=== PATIENT | male | born 1990 | race Caucasian/White ===

== ENCOUNTER 2018-04-20 23:52 | Emergency (ER) | payer SELFPAY ==
[2018-04-21 00:23] VITALS: BP 118/79
--- NOTE | 2018-04-21 00:42 | ER Document Report ---
HPI - HPI Pain Level: Denies Notes: Patient is an otherwise healthy 27-year-old male who presents with chief complaint of rash. Patient reports that multiple family members have this similar rash. Patient denies the use of any new products, denies a history of any MRSA. - CONSTITUTIONAL Constitutional: DENIES: Fever Past Medical History - General Information source: Patient - Social History Smoking Status: Never Smoker Chew tobacco use (# tins/day): No Drug Abuse: None Family History: Reviewed & Not Pertinent Patient has suicidal ideation: No Patient has homicidal ideation: No - Medical History Medical History: Negative Renal/ Medical History: Denies: Hx Peritoneal Dialysis Surgical Hx: Negative - Immunizations Immunizations up to date: Yes Vertical Provider Document - CONSTITUTIONAL Notes: PHYSICAL EXAMINATION: GENERAL: Well-appearing, well-nourished and in no acute distress. HEAD: Atraumatic, normocephalic. EYES: Pupils equal round extraocular movements intact, conjunctiva are normal. ENT: Nares patent NECK: Normal range of motion LUNGS: No respiratory distress Musculoskeletal: Normal range of motion NEUROLOGICAL: Normal speech, normal gait. PSYCH: Normal mood, normal affect. SKIN: Warm, Dry, normal turgor, small erythematous papules noted scattered across patient's body. Patient also has multiple larger round honey crusted lesions to the left shoulder, left hand and right wrist. Course - Re-evaluation Re-evalutation: Examination is consistent with scabies. Patient does have some small areas that are also consistent with impetigo. Patient does have multiple family members with similar symptoms, family recently was getting over impetigo when they broke out with scabies. - Vital Signs Vital signs: Temp Pulse Resp BP Pulse Ox 98.4 F 76 16 118/79 100 04/21/18 00:23 04/21/18 00:23 04/21/18 00:23 04/21/18 00:23 04/21/18 00:23 Discharge - Discharge Clinical Impression: Crusted scabies, Impetigo Condition: Stable Disposition: HOME, SELF-CARE Additional Instructions: Impetigo You have a skin infection called impetigo. This infection is caused by germs growing between the skin layers. It spreads easily and is quite contagious. The usual treatment is with oral antibiotics, along with washing the sores and application of an antibiotic ointment. There's a new prescription antibiotic ointment which may allow some cases of impetigo to be treated without pills. Healing takes about a week. All involved areas should recover with no scarring. If there is significant worsening, or if new symptoms (such as dark urine, fever, chills, or red streaks) arise, call the doctor or return for re- examination. Scabies Your exam suggests the presence of scabies, which are microscopic parasites of the skin. These mites suzan through the skin, causing severe itching. The mite can be spread to other persons by skin contact. All clothing, towels, and bedding should be washed in very hot water, set aside for a week, then washed again. You should apply scabies-killing lotion from the neck down, then wash it off after 12 hours. You may need medication for itching, as the itch persists for many days after the mites have been killed. All family members and close personal contacts should be examined. Repeat treatment may be necessary if the infestation is not eliminated with a single treatment. Call the doctor if you develop increasing swelling and redness, red streaks , tender lumps, fever, or drainage from a skin sore. Prescriptions: Mupirocin 1 applic TD BID 5 Days #44 gm Permethrin [Elimite] 60 gm TP NOW #120 gm Forms: Return to Work
== END 2018-04-21 01:13 | disposition home or self-care (01) ==
LOC: ER 23:52
DX: B86 Scabies (principal); L01.00 Impetigo, unspecified
CPT/HCPCS: 99282

== ENCOUNTER 2018-09-05 01:58 | Emergency (ER) | payer SELFPAY ==
[2018-09-05] MEDS ORDERED: LIDOCAINE 1% INJ-PF (10 MG/ML) 30 ML SDV INJ ONE (04:24)
[2018-09-05] MEDS ORDERED: HYDROCODONE/ACETAMINOPHEN 5-325 MG TABLET PO ONE (04:24)
[2018-09-05] MEDS ORDERED: DOXYCYCLINE HYCLATE 100 MG TABLET PO ONE (04:25)
--- NOTE | 2018-09-05 04:27 | ER Document Report ---
HPI - HPI Patient complains to provider of: Abscess Time Seen by Provider: 09/05/18 03:39 Pain Level: 2 Context: Patient is a 20-year-old male presents to the emergency department for redness and swelling noted to the left anterior thigh. Patient states he noticed this redness and swelling today. Patient stated he feels as though he may have gotten bitten by a bug but he is unsure and is denying any trauma or injury. Patient is denying any fever, Generalized body aches, nausea, vomiting. Past medical history: None Medications: None allergies: Penicillin, sulfa Past Medical History - General Information source: Patient - Social History Smoking Status: Never Smoker Frequency of alcohol use: Rare Drug Abuse: None Family History: Reviewed & Not Pertinent Patient has suicidal ideation: No Patient has homicidal ideation: No Renal/ Medical History: Denies: Hx Peritoneal Dialysis - Immunizations Immunizations up to date: Yes Vertical Provider Document - CONSTITUTIONAL Agree With Documented VS: Yes Notes: GENERAL: Alert, interacts well. No acute distress. HEAD: Normocephalic, atraumatic. EYES: Pupils equal, round, and reactive to light. Extraocular movements intact. ENT: Oral mucosa moist, tongue midline. NECK: Full range of motion. Supple. Trachea midline. LUNGS: Clear to auscultation bilaterally, no wheezes, rales, or rhonchi. No respiratory distress. HEART: Regular rate and rhythm. No murmur ABDOMEN: Soft, non-tender. Non-distended. Bowel sounds present in all 4 quadrants. EXTREMITIES: Moves all 4 extremities spontaneously. No edema, normal radial and dorsalis pedis pulses bilaterally. No cyanosis. BACK: no cervical, thoracic, lumbar midline tenderness. No saddle anesthesia, normal distal neurovascular exam. NEUROLOGICAL: Alert and oriented x3. Normal speech. cranial nerves II through XII grossly intact. PSYCH: Normal affect, normal mood. SKIN: Warm, dry, normal turgor. Area 15 cm x 5 cm of erythema with a centralized 3 cm x 3 cm area fluctuant pocket noted left inner thigh. no streaking noted. - INFECTION CONTROL TRAVEL OUTSIDE OF THE [place] IN LAST 30 DAYS: No Course - Re-evaluation Re-evalutation: 09/05/18 05:28 Abscess was drained, see procedure note for details, patient tolerated well. Antibiotic prescription given, close follow-up precautions discussed. - Vital Signs Vital signs: Temp Pulse Resp BP Pulse Ox 97.9 F 77 20 119/71 100 09/05/18 03:03 09/05/18 03:03 09/05/18 03:03 09/05/18 03:03 09/05/18 03:03 Procedures - Incision and Drainage Left thigh Type: Simple Anesthetic type: 1% Lidocaine mL's of anesthetic: 5 Blade size: 11 I&D procedure: Betadine prep applied, Chlorprep applied, Shurclens applied, Sterile dressing applied Incision Method: Incision made by scalpel Amount/type of drainage: Copious purulent Discharge - Discharge Clinical Impression: Abscess Cellulitis Qualifiers: Site of cellulitis: extremity Site of cellulitis of extremity: lower extremity Laterality: left Qualified Code(s): L03.116 - Cellulitis of left lower limb Condition: Stable Disposition: HOME, SELF-CARE Instructions: Abscess ([facility]), Post Incision and Drainage Additional Instructions: As we discussed you have been seen and treated in the emergency department for an abscess and a skin infection to her left inner leg. Please make sure you take antibiotics as prescribed. Please also make sure you follow-up with your primary care provider in the next 24-48 hours. Please return to the emergency room should you have any other concerning symptoms Prescriptions: Doxycycline Hyclate 100 mg PO BID #14 capsule Forms: Return to Work
[2018-09-05 05:51] VITALS: BP 127/81
== END 2018-09-05 05:40 | disposition home or self-care (01) ==
LOC: ER 01:58
DX: L02.416 Cutaneous abscess of left lower limb (principal); L03.116 Cellulitis of left lower limb; Z88.0 Allergy status to penicillin; Z88.2 Allergy status to sulfonamides
CPT/HCPCS: 99283; 10060; J3490